=== PATIENT | female | born 1970 | race Caucasian/White ===

== ENCOUNTER 2017-08-11 06:56 | Outpatient (CLI) | payer OTHER ==
[~2017-08-11 06:56] MED LIST: Iopamidol 370 76% 100 ML VIAL ONE
--- NOTE | 2017-08-11 13:07 | CT ---
CT OF ABDOMEN AND PELVIS PERFORMED WITH INTRAVENOUS CONTRAST ENHANCEMENT: History: Lower abdominal pain since April with intermittent diarrhea. History of cholecystectomy. FINDINGS: The lung bases are clear. This examination was obtained in a somewhat late arterial phase. The liver and spleen are within normal limits in size without focal mass. The pancreas region is unremarkable a nd the gallbladder has been removed. Right and left adrenal glands and right and left kidneys are normal in size. There is no evidence of obstruction. There is no significant periaortic or mesenteric lymphadenopathy. A mild amount of stool Is seen within the colon. CT OF PELVIS PERFORMED WITH CONTRAST ENHANCEMENT: There is no evidence of adenopathy, mass, or free fluid. The appendix is difficult to definitely iden tify. I see no inflammatory change. IMPRESSION: 1. Moderate amount of stool throughout the colon. 2. Post op cholecystectomy change. POS: [facility] [place]
== END 2017-08-11 06:57 | disposition home or self-care (01) ==
LOC: CT 06:56
PROVIDERS: ATTEND Internal Medicine
DX: R10.2 Pelvic and perineal pain (principal); Z90.49 Acquired absence of other specified parts of digestive tract
CPT/HCPCS: 74177

== ENCOUNTER 2018-02-10 10:42 | Outpatient (CLI) | payer OTHER | END 2018-02-10 10:43 | disposition home or self-care (01) | LOC: BICMAMMO 10:42 | PROVIDERS: ATTEND Obstetrics & Gynecology | DX: Z12.31 Encounter for screening mammogram for malignant neoplasm of breast (principal) | CPT/HCPCS: 77063; 77067 ==

== ENCOUNTER 2019-02-15 09:03 | Outpatient (CLI) | payer OTHER ==
--- NOTE | 2019-02-15 12:36 | MMO ---
Bilateral MAMMO Bilat Screen [facility]. CLINICAL HISTORY: Patient is 48 years old and is seen for screening. The patient has no family history of breast cancer. The patient has no personal history of cancer. VIEWS: The views performed were: bilateral craniocaudal with tomosynthesis and bilateral mediolateral oblique with tomosynthesis. FILMS COMPARED: The present examination has been compared to prior imaging studies performed at [facility] on 02/10/2018, and at [facility] on 11/26/2011, 01/25/2014 and 01/05/2016. This study has been interpreted with the assistance of computer-aided detection. MAMMOGRAM FINDINGS: The breasts are heterogeneously dense, which could obscure a lesion on mammography. There are no suspicious masses, suspicious calcifications, or new areas of architectural distortion. IMPRESSION: THERE IS NO MAMMOGRAPHIC EVIDENCE OF MALIGNANCY. A ROUTINE FOLLOW-UP MAMMOGRAM IN 1 YEAR IS RECOMMENDED. THE RESULTS OF THIS EXAM WERE SENT TO THE PATIENT. ACR BI-RADS Category 1 - Negative MAMMOGRAPHY NOTE: 1. A negative mammogram report should not delay a biopsy if a dominant of clinically suspicious mass is present. 2. Approximately 10% to 15% of breast cancers are not detected by mammography. 3. Adenosis and dense breasts may obscure an underlying neoplasm. Reported by: JONO BRAVO MD Electonically Signed: [id number]
== END 2019-02-15 09:04 | disposition home or self-care (01) ==
LOC: BICMAMMO 09:03
PROVIDERS: ATTEND Obstetrics & Gynecology
DX: Z12.31 Encounter for screening mammogram for malignant neoplasm of breast (principal)
CPT/HCPCS: 77063; 77067

== ENCOUNTER 2020-03-10 12:32 | Outpatient (CLI) | payer OTHER ==
--- NOTE | 2020-03-10 13:12 | MMO ---
Bilateral MAMMO Bilat Screen [facility]. CLINICAL HISTORY: Patient is 49 years old and is seen for screening. The patient has no family history of breast cancer. The patient has no personal history of cancer. VIEWS: The views performed were: bilateral craniocaudal with tomosynthesis and bilateral mediolateral oblique with tomosynthesis. FILMS COMPARED: The present examination has been compared to prior imaging studies performed at [facility] on 02/10/2018 and 02/15/2019, and at [facility] on 01/25/2014 and 01/05/2016. This study has been interpreted with the assistance of computer-aided detection. MAMMOGRAM FINDINGS: The breasts are heterogeneously dense, which could obscure a lesion on mammography. There are stable benign appearing calcifications seen in both breasts. There are no suspicious masses, suspicious calcifications, or new areas of architectural distortion. IMPRESSION: THERE IS NO MAMMOGRAPHIC EVIDENCE OF MALIGNANCY. A ROUTINE FOLLOW-UP MAMMOGRAM IN 1 YEAR IS RECOMMENDED. THE RESULTS OF THIS EXAM WERE SENT TO THE PATIENT. ACR BI-RADS Category 2 - Benign finding MAMMOGRAPHY NOTE: 1. A negative mammogram report should not delay a biopsy if a dominant of clinically suspicious mass is present. 2. Approximately 10% to 15% of breast cancers are not detected by mammography. 3. Adenosis and dense breasts may obscure an underlying neoplasm. Reported by: LEOPOLDO HO MD Electonically Signed: [id number]
== END 2020-03-10 12:33 | disposition home or self-care (01) ==
LOC: BICMAMMO 12:32
PROVIDERS: ATTEND Obstetrics & Gynecology
DX: Z12.31 Encounter for screening mammogram for malignant neoplasm of breast (principal)
CPT/HCPCS: 77063; 77067

== ENCOUNTER 2021-03-12 10:58 | Outpatient (CLI) | payer OTHER | END 2021-03-12 10:59 | disposition home or self-care (01) | LOC: BICMAMMO 10:58 | PROVIDERS: ATTEND Obstetrics & Gynecology | DX: Z12.31 Encounter for screening mammogram for malignant neoplasm of breast (principal); R92.1 Mammographic calcification found on diagnostic imaging of breast; N63.21 Unspecified lump in the left breast, upper outer quadrant | CPT/HCPCS: 77063; 77067 ==

== ENCOUNTER 2021-03-15 10:02 | Outpatient (CLI) | payer OTHER | END 2021-03-15 10:03 | disposition home or self-care (01) | LOC: BICULT 10:02 | PROVIDERS: ATTEND Obstetrics & Gynecology | DX: R92.8 Other abnormal and inconclusive findings on diagnostic imaging of breast (principal) ==

== ENCOUNTER 2022-03-26 15:04 | Outpatient (CLI) | payer BC | END 2022-03-26 15:05 | disposition home or self-care (01) | LOC: TBSIIMAG 15:04 | PROVIDERS: ATTEND Orthopaedic Surgery | DX: M25.562 Pain in left knee (principal); S83.512A Sprain of anterior cruciate ligament of left knee, initial encounter; S80.12XA Contusion of left lower leg, initial encounter ==

== ENCOUNTER 2022-05-01 06:04 | Observation (INO) | payer BC ==
[2022-05-01] MEDS ORDERED: Bupivacaine PF 0.5% 30 ML VIAL ONE (06:47)
[2022-05-01] MEDS ORDERED: Midazolam HCl 2 mg/2 ml Vial ONE ×2 (06:47→07:07)
[2022-05-01] MEDS ORDERED: Fentanyl 100 MCG/2 ML VIAL ONE ×5 (06:47→13:44)
[2022-05-01] MEDS ORDERED: Lidocaine 1% (PF) 30 ML VIAL ONE (07:07)
[2022-05-01] MEDS ORDERED: CEFAZOLIN 2 GM VIAL ONE ×2 (07:10→13:49)
[2022-05-01] MEDS ORDERED: Sodium Chloride 0.9% 100 ML ONE ×2 (07:10→13:52)
[2022-05-01] MEDS ORDERED: fentaNYL PF 100 MCG/2 ML SYRINGE ONE (07:25)
[2022-05-01] MEDS ORDERED: Promethazine HCl 25 MG/ML VIAL ONE (07:25)
[2022-05-01] MEDS ORDERED: Dexmedetomidine 200 MCG/2 ML VIAL ONE (07:26)
[2022-05-01] MEDS ORDERED: Bupivacaine HCl 0.5%/Epinephrine 1:200,000/PF 30 ml Vial ONE (07:30)
[2022-05-01] MEDS ORDERED: Vancomycin 1 GM/200 ML (FROZEN) BAG ONE (07:39)
[2022-05-01] MEDS ORDERED: Dexamethasone 20 MG/5 ML VIAL ONE (07:47)
[2022-05-01] MEDS ORDERED: PROPOFOL 200 MG/20 ML VIAL ONE (07:47)
[2022-05-01] MEDS ORDERED: Lidocaine 1% PF 5 ML VIAL ONE (07:47)
[2022-05-01] MEDS ORDERED: Ketorolac Tromethamine 30 MG/ML VIAL ONE (07:47)
[2022-05-01] MEDS ORDERED: Ondansetron PF 4 MG/2 ML Vial ONE (07:47)
[2022-05-01] MEDS ORDERED: diphenhydrAMINE 50 MG CAP PO PRN (07:50)
[2022-05-01] MEDS ORDERED: Ondansetron PF 4 MG/2 ML Vial IVP PRN ×2 (07:50→09:30)
[2022-05-01] MEDS ORDERED: Milk Of Magnesia 30 ML UDCUP PO PRN (07:50)
[2022-05-01] MEDS ORDERED: Bisacodyl 10 MG SUPP PR PRN (07:50)
[2022-05-01] MEDS ORDERED: Methocarbamol 500 MG TAB PO PRN (07:50)
[2022-05-01] MEDS ORDERED: HYDROcodone/Acetaminophen 7.5/325 mg Tablet PO PRN ×2 (07:50)
[2022-05-01] MEDS ORDERED: Acetaminophen 500 MG TAB PO PRN (07:50)
[2022-05-01] MEDS ORDERED: traMADol HCl 50 MG TAB PO PRN ×3 (07:50→09:30)
[2022-05-01 07:52] LABS: SARS-CoV-2 NAA Rapid Test Not Detected (NotDetected)
[2022-05-01] MEDS ORDERED: DESOGESTREL ETHINYL ESTRADIOL PO SCH (09:00)
[2022-05-01] MEDS ORDERED: Desogestrel-Ethinyl Estradiol [Reclipsen 28 Day Tablet] PO SCH (09:00)
[2022-05-01] MEDS ORDERED: Fentanyl 100 MCG/2 ML VIAL IV PRN (09:24)
[2022-05-01] MEDS ORDERED: Ropivacaine 0.2% 550 ML 550 ML NERVE BLCK SCH (09:30)
[2022-05-01] MEDS ORDERED: HYDROcodone/Acetaminophen 10/325 mg Tablet PO PRN (09:30)
[2022-05-01] MEDS ORDERED: Promethazine HCl 25 MG/ML VIAL IM PRN (09:30)
[2022-05-01] MEDS ORDERED: Zolpidem Tartrate 5 MG TAB PO PRN (09:30)
[2022-05-01] MEDS ORDERED: Ketorolac Tromethamine 30 MG/ML VIAL IVP SCH (12:00)
[2022-05-01] MEDS ORDERED: CEFAZOLIN 2 GM in Sodium Chloride 0.9% 100 ML IVPB SCH (14:00)
[2022-05-01] MEDS: Ketorolac Tromethamine 30 MG/ML VIAL IVP SCH ×2 (14:37→18:26)
[2022-05-01] MEDS: Dextrose 5 %-0.45 % NaCl 1,000 ML IV SCH ×2 (14:37→19:17)
[2022-05-01] MEDS: Levothyroxine Sodium 112 MCG TAB PO SCH (14:37)
[2022-05-01] MEDS: Famotidine 20 MG TAB PO SCH ×2 (14:37→21:25)
[2022-05-01 16:10] VITALS: BMI 26.6
[2022-05-01] MEDS: CEFAZOLIN 2 GM in Sodium Chloride 0.9% 100 ML IVPB SCH (16:20)
[2022-05-01] MEDS: Vancomycin 1 GM in Premix Bag 1 BAG IVPB SCH (18:26)
[2022-05-01] MEDS: HYDROcodone/Acetaminophen 10/325 mg Tablet PO PRN (18:33)
[2022-05-02] MEDS: Ketorolac Tromethamine 30 MG/ML VIAL IVP SCH ×2 (00:18→05:50)
[2022-05-02] MEDS: CEFAZOLIN 2 GM in Sodium Chloride 0.9% 100 ML IVPB SCH (00:18)
[2022-05-02] MEDS: Dextrose 5 %-0.45 % NaCl 1,000 ML IV SCH (03:26)
[2022-05-02 03:43] VITALS: BP 127/74; TEMP 97.9
[2022-05-02] MEDS: HYDROcodone/Acetaminophen 10/325 mg Tablet PO PRN (05:14)
[2022-05-02] MEDS: Vancomycin 1 GM in Premix Bag 1 BAG IVPB SCH (06:32)
[2022-05-02] MEDS: Levothyroxine Sodium 112 MCG TAB PO SCH (09:07)
[2022-05-02] MEDS: Famotidine 20 MG TAB PO SCH (09:07)
== END 2022-05-02 10:15 | disposition home or self-care (01) ==
LOC: SDC 06:04 → SURG B 15:23
PROVIDERS: ADMIT Orthopaedic Surgery; ATTEND Orthopaedic Surgery
PROC: 0MRP47Z Replacement of Left Knee Bursa and Ligament with Autologous Tissue Substitute, Percutaneous Endoscopic Approach (ICD-10-PCS; principal; 2022-05-01)
DX: S83.512A Sprain of anterior cruciate ligament of left knee, initial encounter (principal); E03.9 Hypothyroidism, unspecified; Z79.3 Long term (current) use of hormonal contraceptives; Z79.890 Hormone replacement therapy; Z20.822 Contact with and (suspected) exposure to COVID-19; W19.XXXA Unspecified fall, initial encounter; Y93.23 Activity, snow (alpine) (downhill) skiing, snowboarding, sledding, tobogganing and snow tubing
CPT/HCPCS: 96365; 96366; 96367; 96375; 96376; A4306; C1713; C1889; C1898; G0378; J1100; J1885; J2001; J2250; J2405; J2550; J2704; J2795; J3010; J3370-JW; J3490; S0020; U0002